=== PATIENT | female | born 1965 | race Caucasian/White ===

== ENCOUNTER 2016-12-11 08:46 | Emergency (ER) | payer OTHER ==
[~2016-12-11] VITALS: Ht 157.5 cm; Wt 85.9 kg
[2016-12-11 08:46] VITALS: BP 134/80
[~2016-12-11 08:46] MED LIST: /CELE20CA OR; /LOR25TA PO; /TIOT18INH INH; ACET500C PO; AMLO2.5T OR; AMLO2.5T PO; ASPI81TA85 PO; ATOR1TAB21 PO; BUSP15TA OR; BUTATAB6 PO; CARI350T OR; CELE40TA OR; CENTTAB PO; CLON0.5T OR; CLON1TAB PO; CRES20TA PO; DICLOFENAC PO; FENO145T PO; FENO54TA2 PO; HCTZ PO; IBUP-1022 PO; IBUP-1114 PO; IMURAN PO; LEFL1TAB4 PO; LISI10TA4 PO; METH5TAB2 OR; MULTIVIT PO; NABU750T OR; NAPR500T3 PO; OXYC-208 PO; OXYC10TA12 OR; OXYC5CAP2 PO; PAXI40TA2 PO; PRED10TA2 OR; ROSU10TA OR; SERT50TA PO; SULF500T8 OR; TRAM50TA2 OR; TUDO400A IN; ZOLO100T PO; [UNRECOGNIZED DRUG - CODE] PO; [UNRECOGNIZED DRUG - OTHER] PO; [UNRECOGNIZED DRUG - OTHER] PO; [UNRECOGNIZED DRUG - OTHER] PO; spiriva; spiriva INH
[2016-12-12] MEDS ORDERED: CARI350T (12:25)
[2016-12-12] MEDS ORDERED: INCR1INH (12:25)
[2016-12-12] MEDS ORDERED: BUTA-198 (12:25)
[2016-12-12] MEDS ORDERED: PRED5TA (12:25)
[2016-12-12] MEDS ORDERED: OXYC15TA76 (12:25)
[2016-12-12] MEDS ORDERED: SUMA50TA2 (12:25)
[2016-12-12] MEDS ORDERED: FENO54TA2 PO (15:27)
[2016-12-12] MEDS ORDERED: CARI350T PO (15:27)
[2016-12-12] MEDS ORDERED: CLON1TAB PO (15:27)
[2016-12-12] MEDS ORDERED: INCR1INH INH (15:27)
[2016-12-12] MEDS ORDERED: ACET50TAOT PO (15:27)
[2016-12-12] MEDS ORDERED: SUMA50TA2 PO (15:27)
[2016-12-12] MEDS ORDERED: ASPI1TAB PO (15:27)
[2016-12-12] MEDS ORDERED: OXYC15TA76 PO (15:27)
[2016-12-12] MEDS ORDERED: AZAT50TA2 PO ×2 (15:27)
== END 2016-12-11 09:48 | disposition left against medical advice (07) ==
LOC: M ED 08:46
DX: R11.10 Vomiting, unspecified (principal); Z53.29 Procedure and treatment not carried out because of patient's decision for other reasons

== ENCOUNTER 2016-12-12 11:52 | Observation (INO) | payer OTHER ==
[~2016-12-12] VITALS: Ht 157.5 cm; Wt 86.6 kg
[2016-12-12] MEDS: NS 1,000 ML IV SCH ×2 (00:50→21:21)
[2016-12-12] MEDS ORDERED: INCR1INH (12:25)
[2016-12-12] MEDS ORDERED: SUMA50TA2 (12:25)
[2016-12-12] MEDS ORDERED: CARI350T (12:25)
[2016-12-12] MEDS ORDERED: BUTA-198 (12:25)
[2016-12-12] MEDS ORDERED: PRED5TA (12:25)
[2016-12-12] MEDS ORDERED: OXYC15TA76 (12:25)
[2016-12-12] MEDS ORDERED: NS 1,000 ML IV ONE (12:45)
[2016-12-12 12:59] LABS: BASO % 0.6 % (0.0-1.0); EOS # 0.1 K/mm3 (0.0-0.50); EOS % 1.3 % (0.0-3.0); LARGE UNSTAINED CELL # 0.1 K/mm3 (0.0-0.4); LARGE UNSTAINED CELL % 1.6 % (0.0-4.0); LYMPH % 16.2 % (24.0-44.0); MEAN CORPUSCULAR HGB CONC 33.9 g/dl (32.0-36.5); MEAN CORPUSCULAR VOLUME 88.4 fl (80.0-96.0); MONO # 0.3 K/mm3 (0.0-0.8); MONO % 5.8 % (0.0-5.0); NEUTROPHILS # 4.3 K/mm3 (1.8-7.7); NEUTROPHILS % 74.5 % (36.0-66.0); PLATELET COUNT, AUTOMATED 217 k/mm3 (150-450); WHITE BLOOD COUNT 5.8 K/mm3 (4.0-10.0)
[2016-12-12] MEDS ORDERED: ONDANSETRON 4MG/2ML VIAL (J2405) IV ONE (13:00)
[2016-12-12] MEDS ORDERED: METOCLOPRAMIDE INJ 10MG/2ML VIAL (J2765) IV ONE (13:00)
[2016-12-12 13:27] LABS: ALBUMIN 3.3 GM/DL (3.2-5.2); ALBUMIN/GLOBULIN RATIO 0.83 (1.00-1.93); ALKALINE PHOSPHATASE 216 U/L (45-117); ALT/SGPT 79 U/L (12-78); ANION GAP 11 MEQ/L (8-16); AST/SGOT 163 U/L (15-37); BILIRUBIN,DIRECT 0.4 MG/DL (0.0-0.2); BILIRUBIN,TOTAL 0.8 MG/DL (0.2-1.0); BLOOD UREA NITROGEN 7 MG/DL (7-18); CALCIUM LEVEL 8.8 MG/DL (8.5-10.1); CARBON DIOXIDE LEVEL 23 MEQ/L (21-32); CHLORIDE LEVEL 98 MEQ/L (98-107); CREATININE FOR GFR 0.63 MG/DL (0.55-1.02); GLOMERULAR FILTRATION RATE > 60.0 (>51); GLUCOSE, FASTING 103 MG/DL (70-105); POTASSIUM SERUM 3.9 MEQ/L (3.5-5.1); SODIUM LEVEL 132 MEQ/L (136-145); TOTAL PROTEIN 7.3 GM/DL (6.4-8.2)
--- NOTE | 2016-12-12 13:42 | REP ---
RIGHT UPPER QUADRANT ULTRASOUND: Real-time sonographic evaluation of the right upper quadrant performed. The gallbladder demonstrates no evidence of intraluminal calculi. The gallbladder wall is approximately 4 mm which is upper limits of normal. There is no pericholecystic fluid. There is no intrahepatic or extrahepatic biliary dilatation, common bile duct measuring 5 mm in diameter. Liver and pancreas demonstrate no evidence of a mass. Right kidney demonstrates no hydronephrosis or nephrolithiasis with normal size at 11.5 cm in length. IMPRESSION: Essentially negative right upper quadrant ultrasound. Signed by Giovani Dorsey MD 12/12/2016 04:50 P
[2016-12-12] MEDS ORDERED: PERCOCET 5MG/325MG TAB PO PRN (14:45)
[2016-12-12] MEDS ORDERED: KETOROLAC 30 MG/ML VIAL (J1885) IV PRN (14:45)
[2016-12-12] MEDS ORDERED: MORPHINE 2 MG/ML 1ML SYRINGE IV PRN (14:45)
[2016-12-12] MEDS ORDERED: SODIUM CHLORIDE 0.9% 1000 ML IV SCH (14:45)
[2016-12-12] MEDS ORDERED: METOCLOPRAMIDE INJ 10MG/2ML VIAL (J2765) IV PRN (15:00)
[2016-12-12] MEDS ORDERED: clonazePAM 1 MG TAB PO ONE (15:00)
[2016-12-12] MEDS ORDERED: ONDANSETRON 4MG/2ML VIAL (J2405) IV PRN (15:00)
[2016-12-12] MEDS ORDERED: PANTOPRAZOLE 40MG INJ (PROTONIX) (C9113) IV ONE (15:00)
[2016-12-12 15:15] LABS: CALCIUM OXALATE CRYSTALS SMALL
[2016-12-12] MEDS ORDERED: ACET50TAOT PO (15:27)
[2016-12-12] MEDS ORDERED: CLON1TAB PO (15:27)
[2016-12-12] MEDS ORDERED: SUMA50TA2 PO (15:27)
[2016-12-12] MEDS ORDERED: FENO54TA2 PO (15:27)
[2016-12-12] MEDS ORDERED: AZAT50TA2 PO ×2 (15:27)
[2016-12-12] MEDS ORDERED: ASPI1TAB PO (15:27)
[2016-12-12] MEDS ORDERED: INCR1INH INH (15:27)
[2016-12-12] MEDS ORDERED: CARI350T PO (15:27)
[2016-12-12] MEDS ORDERED: OXYC15TA76 PO (15:27)
[2016-12-12] MEDS ORDERED: clonazePAM 1 MG TAB PO PRN (15:30)
[2016-12-12] MEDS: CARISOPRODOL 350 MG TAB PO SCH ×2 (16:00→20:56)
[2016-12-12] MEDS: SUCRALFATE 1 GM TAB PO SCH (18:00)
--- NOTE | 2016-12-12 19:30 | REPUSA ---
Clinical history: Pain. Technique: T2 weighted images of the upper abdomen were obtained. MIP images of the biliary ducts wit h 3-D reconstructions were obtained for the cholangiogram portion of the study. No comparison is available. Findings: The biliary ducts demonstrate normal caliber and contour. No stenosis, narrowing, or intral uminal filling defect is seen. The gallbladder is unremarkable. The common bile duct measures 4 mm, a nd the common hepatic duct measures 6 mm. The pancreatic duct is not visualized. The visualized porti ons of the liver, spleen, pancreas, kidneys, and adrenal glands are unremarkable. There is no abdomin al lymphadenopathy or ascites. The osseous structures and soft tissues are unremarkable. Impression: Unremarkable MR cholangiogram study.
[2016-12-12 20:25] VITALS: BP 151/72
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
[2016-12-12] MEDS ORDERED: azaTHIOprine 50 MG TAB (J7500) PO SCH (21:00)
[2016-12-12] MEDS: clonazePAM 0.5 MG TAB PO PRN (21:21)
[2016-12-12] MEDS: HEPARIN SOD (PORCINE) 5000 UNITS/ML VIAL SQ SCH (21:22)
[2016-12-12] MEDS: oxyCODONE 5MG TAB PO PRN (21:27)
[2016-12-12] MEDS: ASPIRIN 81 MG ENTERIC TAB PO SCH ×2 (21:42→21:43)
--- NOTE | 2016-12-12 22:26 | ECGEPIP ---
Stationary ECG Study [facility] Test Date: 2016-12-12 Pat Name: JENNY FALCON Department: Room: [place] [address] Gender: F Dry Roaster: perfecto : 1965 Requested By: JESÚS Gonzales Order Number: [id number] Reading MD: Gino Baptiste Measurements Intervals [place] Rate: 89 P: 67 ND: 149 QRS: 34 QRSD: 86 T: 56 QT: 389 QTc: 475 Interpretive Statements Normal sinus rhythm Nonspecific ST-T wave abnormalities No significant change when compared to prior tracing of 10/13/2013 Electronically Signed On 12-12-2016 22:26:20 EDT by Gino Baptiste
[2016-12-12] MEDS ORDERED: D5W/0.45% SODIUM CHLORIDE 1,000 ML IV SCH (22:43)
[2016-12-13] VITALS: BP 122/63
[2016-12-13] MEDS: SUCRALFATE 1 GM TAB PO SCH ×4 (00:44→18:43)
[2016-12-13 04:00] VITALS: BP 124/67
[2016-12-13] MEDS: HEPARIN SOD (PORCINE) 5000 UNITS/ML VIAL SQ SCH ×3 (06:32→21:18)
[2016-12-13 07:22] LABS: BASO % 0.5 % (0.0-1.0); EOS % 1.1 % (0.0-3.0); LARGE UNSTAINED CELL # 0.2 K/mm3 (0.0-0.4); LARGE UNSTAINED CELL % 4.8 % (0.0-4.0); LYMPH # 0.5 K/mm3 (1.5-4.5); LYMPH % 14.2 % (24.0-44.0); MEAN CORPUSCULAR HEMOGLOBIN 30.8 pg (27.0-33.0); MEAN CORPUSCULAR HGB CONC 34.8 g/dl (32.0-36.5); MEAN CORPUSCULAR VOLUME 88.5 fl (80.0-96.0); MONO # 0.2 K/mm3 (0.0-0.8); MONO % 4.8 % (0.0-5.0); NEUTROPHILS # 2.8 K/mm3 (1.8-7.7); NEUTROPHILS % 74.7 % (36.0-66.0); PLATELET COUNT, AUTOMATED 171 k/mm3 (150-450); RED CELL DISTRIBUTION WIDTH 15.8 % (11.5-14.5); WHITE BLOOD COUNT 3.7 K/mm3 (4.0-10.0)
[2016-12-13 07:41] LABS: ALBUMIN 2.6 GM/DL (3.2-5.2); ALBUMIN/GLOBULIN RATIO 0.81 (1.00-1.93); ALKALINE PHOSPHATASE 178 U/L (45-117); ALT/SGPT 61 U/L (12-78); ANION GAP 9 MEQ/L (8-16); AST/SGOT 130 U/L (15-37); BILIRUBIN,TOTAL 0.5 MG/DL (0.2-1.0); BLOOD UREA NITROGEN 5 MG/DL (7-18); CALCIUM LEVEL 7.7 MG/DL (8.5-10.1); CARBON DIOXIDE LEVEL 23 MEQ/L (21-32); CHLORIDE LEVEL 105 MEQ/L (98-107); CHOLESTEROL LEVEL 170 MG/DL (<200); CREATININE FOR GFR 0.52 MG/DL (0.55-1.02); GAMMA GLUTAMYLTRANSPEPTIDASE 723 U/L (5-55); GLOMERULAR FILTRATION RATE > 60.0 (>51); GLUCOSE, FASTING 76 MG/DL (70-105); MAGNESIUM LEVEL 2.2 MG/DL (1.8-2.4); POTASSIUM SERUM 4.1 MEQ/L (3.5-5.1); SODIUM LEVEL 137 MEQ/L (136-145); TOTAL PROTEIN 5.8 GM/DL (6.4-8.2); TRIGLYCERIDES LEVEL 217 MG/DL (<150)
[2016-12-13 08:00] VITALS: BP 122/61
[2016-12-13] MEDS: clonazePAM 0.5 MG TAB PO PRN ×2 (08:37→20:50)
[2016-12-13] MEDS: CARISOPRODOL 350 MG TAB PO SCH ×3 (08:37→20:50)
[2016-12-13] MEDS: PANTOPRAZOLE 40MG INJ (PROTONIX) (C9113) IV SCH (08:37)
[2016-12-13] MEDS: ASPIRIN 81 MG ENTERIC TAB PO SCH (08:49)
[2016-12-13] MEDS ORDERED: azaTHIOprine 50 MG TAB (J7500) PO SCH (09:00)
[2016-12-13] MEDS ORDERED: E-Z-PAQUE 96% w/w SUSP 176GM BTL As Ordered ONE (13:56)
[2016-12-13] MEDS ORDERED: E-Z-HD 98% w/w 340GM SUSP BTL As Ordered ONE (13:57)
[2016-12-13] MEDS ORDERED: E-Z-GAS II EFFERVESCENT PACKET (SODIUM BICARB./CITRIC ACID/SIMETHICONE) As Ordered ONE (13:57)
--- NOTE | 2016-12-13 14:49 | REP ---
Hepatobiliary scan: History: Abdominal pain. Question acute cholecystitis. Technique: 6.6 mCi technetium 99m mebrofenin is injected and sequential anterior abdominal images are acquired for 60 minutes. A 3 hour delayed sequence is acquired as well. Scintigraphic findings: The initial hepatocellular parenchymal uptake phase is normal and homogeneous. Intrahepatic and extrahepatic biliary tract and duodenal labeling is first visible on the 10 minute image. Subsequent images demonstrate normal washout from the liver into the small intestine. The gallbladder is not visualized during the first 60 minutes of imaging. However, the gallbladder is well seen on the 3 hour delayed images. This excludes acute cholecystitis. Impression: The gallbladder is labeled between the 1 hour and the 3 hour images consistent with chronic cholecystitis. There is no evidence of cystic duct obstruction or acute cholecystitis. Signed by Conrado Ambrose MD 12/13/2016 05:24 P
[2016-12-13 16:00] VITALS: BP 112/57
--- NOTE | 2016-12-13 16:03 | IPNPDOC ---
Subjective Date Seen The patient was seen on 12/13/16. Subjective Chief Complaint/HPI Patient seen and examined at the bedside. States that her abdominal pain has improved somewhat overnight. Denies any other acute complaints at this time. Objective Physical Examination General Exam: Positive: Alert, Cooperative, No Acute Distress ENT Exam: Positive: Atraumatic, Mucous membr. moist/pink Neck Exam: Negative: JVD Chest Exam: Positive: Clear to auscultation, Normal air movement Heart Exam: Positive: Rate Normal, Normal S1, Normal S2 Abdomen Exam: Positive: Soft, Tenderness (Mild tenderness to deep palpation in the epigastric region) Extremity Exam: Negative: Tenderness, Swelling Psych Exam: Positive: Oriented x 3 Assessment /Plan Plan/VTE VTE Prophylaxis Ordered?: Yes Plan Abdominal Pain possibly 2/2 Chronic Cholecystitis, Pancreatitis, possible Peptic Ulcer Disease U/S of the GB, and MRCP negative HIDA scan however notable for chronic cholecystitis Upper GI Series ordered for possible underlying PUD--Patient started on Protonix , Carafate Cont IVF Hydration NPO Will consult Surgery regarding possible need for cholecystectomy in light of her symptoms of RUQ and associated N/V Dyslipidemia Cont Statin History of chronic lumbar disc disease Continue Soma History of rheumatoid arthritis Will hold Azathioprine for now History of migraine headaches Continue current regimen Anxiety Continue Klonopin when necessary DVT prophylaxis Heparin subcutaneous VS, I&O, 24H, Fishbone Vital Signs/I&O Vital Signs Date Time Temp Pulse Resp B/P (MAP) Pulse Ox O2 Delivery O2 Flow Rate FiO2 12/13/16 14:52 18 12/13/16 08:00 98.1 89 122/61 (81) 99 Room Air I&O- Last 24 Hours up to 6 AM 12/14/16 06:00 Intake Total 0 ml Output Total 550 ml Balance -550 ml Laboratory Data 24H LABS Laboratory Tests 2 12/12/16 19:03: Total Creatine Kinase 115, Creatine Kinase MB 1.5, Creatine Kinase MB Relative Index 1.30, Troponin I < 0.02 12/12/16 23:52: Total Creatine Kinase 114, Creatine Kinase MB 1.6, Creatine Kinase MB Relative Index 1.40, Troponin I < 0.02 12/13/16 06:53: White Blood Count 3.7L, Red Blood Count 3.84L, Hemoglobin 11.8#L, Hematocrit 34.0L, Mean Corpuscular Volume 88.5, Mean Corpuscular Hemoglobin 30.8, Mean Corpuscular Hemoglobin Concent 34.8, Red Cell Distribution Width 15.8H, Platelet Count 171, Neutrophils (%) (Auto) 74.7H, Lymphocytes (%) (Auto) 14.2L, Monocytes (%) (Auto) 4.8, Eosinophils (%) (Auto) 1.1, Basophils (%) (Auto) 0.5, Neutrophils # (Auto) 2.8, Lymphocytes # (Auto) 0.5L, Monocytes # (Auto) 0.2, Eosinophils # (Auto) 0.0, Basophils # (Auto) 0.0, Large Unclassified Cells % 4.8H, Large Unclassified Cells # 0.2, Anion Gap 9, Glomerular Filtration Rate > 60.0, Blood Urea Nitrogen 5L, Creatinine 0.52L, Sodium Level 137, Potassium Level 4.1, Chloride Level 105, Carbon Dioxide Level 23, Calcium Level 7.7L, Aspartate Amino Transf (AST/SGOT) 130H, Alanine Aminotransferase (ALT/SGPT) 61, Gamma Glutamyl Transpeptidase 723H, Alkaline Phosphatase 178H, Total Bilirubin 0.5, Triglycerides Level 217H, LDL Cholesterol 93.6, Total Protein 5.8#L, Albumin 2.6#L, Magnesium Level 2.2, Albumin/Globulin Ratio 0.81L, Total Cholesterol 170, Non-HDL Cholesterol (LDL + VLDL) 137, Total HDL Cholesterol 33L , Cholesterol/HDL Ratio 5.151H, Lipase 868H CBC/BMP Laboratory Tests 12/13/16 06:53 Red Blood Count 3.84 L, Mean Corpuscular Volume 88.5, Mean Corpuscular Hemoglobin 30.8, Mean Corpuscular Hemoglobin Concent 34.8, Red Cell Distribution Width 15.8 H, Neutrophils (%) (Auto) 74.7 H, Lymphocytes (%) (Auto ) 14.2 L, Monocytes (%) (Auto) 4.8, Eosinophils (%) (Auto) 1.1, Basophils (%) ( Auto) 0.5, Neutrophils # (Auto) 2.8, Lymphocytes # (Auto) 0.5 L, Monocytes # ( Auto) 0.2, Eosinophils # (Auto) 0.0, Basophils # (Auto) 0.0, Calcium Level 7.7 L , Aspartate Amino Transf (AST/SGOT) 130 H, Alanine Aminotransferase (ALT/SGPT) 61, Gamma Glutamyl Transpeptidase 723 H, Alkaline Phosphatase 178 H, Total Bilirubin 0.5, Triglycerides Level 217 H, LDL Cholesterol 93.6, Total Protein 5.8 #L, Albumin 2.6 #L Microbiology Microbiology 12/12/16 Urine Culture - Final, Complete CHASE SMITH MD Dec 13, 2016 16:03
--- NOTE | 2016-12-13 17:20 | REP ---
UPPER GI, AIR CONTRAST: The procedure was performed under the direct supervision of Dr. Dorsey. The images were reviewed with Dr. Dorsey. The network support analyst film shows no organomegaly or pathological masses. The intestinal gas pattern is nonspecific. There are vascular stents identified. There are vascular calcifications identified. Liquid barium and gas-producing granules were given in the erect position as well as liquid barium in the prone oblique position in order to perform a double contrast upper GI examination. The oral and pharyngeal stages of deglutition are unremarkable. Esophageal transport is prompt and efficient and there is no esophagitis or stricture. There is a hiatal hernia present. There is a Schatzki's B ring which measures 8 mm at it widest. Gastroesophageal reflux is not demonstrated on this examination. The stomach clark are normally outlined. The rugal folds are smooth and regular. There is no gastritis, neoplasm or ulcer disease. The duodenal clark are normally outlined. The mucosal folds are smooth and regular. There is no duodenitis, pancreatitis, peptic ulcer disease or neoplasm. The visualized portion of the proximal small bowel appears normal in course and caliber. IMPRESSION: There is a hiatal hernia. There is a Schatzki's B ring which measures 8 mm. 2 minutes and 21 seconds of fluoroscopy time was utilized for this procedure. Reviewed by JONATHON Hawthorne 12/15/2016 04:01 PEdited and Signed by Giovani Dorsey MD 12/15/2016 07:20 P
[2016-12-13] MEDS: INCRUSE ELLIPTA 62.5 MCG INH SCH (18:12)
[2016-12-13 20:00] VITALS: BP 139/73
[2016-12-13] MEDS: oxyCODONE 5MG TAB PO PRN (21:19)
[2016-12-14] VITALS: BP 145/70
[2016-12-14] MEDS: SUCRALFATE 1 GM TAB PO SCH ×3 (00:42→12:00)
[2016-12-14] MEDS: HEPARIN SOD (PORCINE) 5000 UNITS/ML VIAL SQ SCH (06:22)
[2016-12-14 07:23] LABS: BASO % 0.5 % (0.0-1.0); EOS # 0.1 K/mm3 (0.0-0.50); EOS % 2.1 % (0.0-3.0); LARGE UNSTAINED CELL # 0.2 K/mm3 (0.0-0.4); LARGE UNSTAINED CELL % 5.5 % (0.0-4.0); LYMPH # 0.6 K/mm3 (1.5-4.5); LYMPH % 18.8 % (24.0-44.0); MEAN CORPUSCULAR HEMOGLOBIN 31.3 pg (27.0-33.0); MEAN CORPUSCULAR HGB CONC 36.1 g/dl (32.0-36.5); MEAN CORPUSCULAR VOLUME 86.7 fl (80.0-96.0); MONO # 0.2 K/mm3 (0.0-0.8); MONO % 5.6 % (0.0-5.0); NEUTROPHILS # 2.3 K/mm3 (1.8-7.7); NEUTROPHILS % 67.5 % (36.0-66.0); PLATELET COUNT, AUTOMATED 159 k/mm3 (150-450); RED CELL DISTRIBUTION WIDTH 15.8 % (11.5-14.5); WHITE BLOOD COUNT 3.3 K/mm3 (4.0-10.0)
[2016-12-14 07:25] LABS: ALBUMIN 2.6 GM/DL (3.2-5.2); ALBUMIN/GLOBULIN RATIO 0.68 (1.00-1.93); ALKALINE PHOSPHATASE 178 U/L (45-117); ALT/SGPT 60 U/L (12-78); ANION GAP 10 MEQ/L (8-16); AST/SGOT 137 U/L (15-37); BILIRUBIN,TOTAL 0.5 MG/DL (0.2-1.0); BLOOD UREA NITROGEN 3 MG/DL (7-18); CALCIUM LEVEL 8.4 MG/DL (8.5-10.1); CARBON DIOXIDE LEVEL 26 MEQ/L (21-32); CHLORIDE LEVEL 105 MEQ/L (98-107); GLOMERULAR FILTRATION RATE > 60.0 (>51); GLUCOSE, FASTING 82 MG/DL (70-105); POTASSIUM SERUM 3.9 MEQ/L (3.5-5.1); SODIUM LEVEL 141 MEQ/L (136-145); TOTAL PROTEIN 6.4 GM/DL (6.4-8.2)
[2016-12-14 08:30] VITALS: BP 135/67
[2016-12-14] MEDS ORDERED: PROT1TAB2 PO (08:59)
[2016-12-14] MEDS: ASPIRIN 81 MG ENTERIC TAB PO SCH (09:15)
[2016-12-14] MEDS: CARISOPRODOL 350 MG TAB PO SCH (09:15)
[2016-12-14] MEDS: PANTOPRAZOLE 40MG INJ (PROTONIX) (C9113) IV SCH (09:15)
[2016-12-14] MEDS: INCRUSE ELLIPTA 62.5 MCG INH SCH (11:31)
[2016-12-14] MEDS: clonazePAM 0.5 MG TAB PO PRN (11:34)
[2016-12-14] MEDS: oxyCODONE 5MG TAB PO PRN (11:34)
--- NOTE | 2016-12-14 12:14 | DS.PDOC ---
Discharge Summary General Date of Admission Dec 12, 2016 at 14:43 Date of Discharge 12/14/16 Discharge Summary PROCEDURES PERFORMED DURING STAY: None. ADMITTING/DISCHARGE DIAGNOSES: 1. . Acute Pancreatitis 2. . Chronic cholecystitis 3. . Chronic Dysphagia secondary to Schatzki's ring COMPLICATIONS/CHIEF COMPLAINT: Acute Pancreatitis. HISTORY OF PRESENT ILLNESS: . 51-year-old female with past medical history of GERD, rheumatoid arthritis, migraines, peripheral artery disease, dyslipidemia, asthma, hypertension, history of alcohol abuse for 20+ years but currently sober for the last 12, and chronic lumbar pain presented to the ER with a chief complaint of crampy abdominal pain in the right upper quadrant and epigastric area. The patient also complained of intractable nausea and vomiting with this. She described the abdominal pain is achy and crampy, and exacerbated by eating. She denied any similar episodes in the past. She stated that she has not had any alcoholic drinks in the last 12 years. She denies any complaints of fevers, chills, chest pain, shortness of breath, or any lightheadedness/dizziness. In the ER, the patient was noted to have elevated lipase level. An ultrasound of the gallbladder and MRCP revealed no acute findings. A HIDA scan revealed chronic cholecystitis. The patient was admitted to the hospitalist service for further evaluation and management. During hospitalization, the patient was started on IV fluid hydration, kept nothing by mouth, and administered medications for pain. The patient subsequently reported alleviation of her abdominal pain, nausea, and vomiting. She was started on a clear liquid diet which was advanced as tolerated. I did discuss the case with Dr. Steven of surgery, and there was no acute indication for cholecystectomy at this time. The pancreatitis was deemed likely secondary to the patient's history of alcohol abuse. Also of note, the patient did complain of food getting stuck in her throat at times, which has been happening for the last 30+ years according to the patient. We did order an upper GI series which was remarkable for a Schatzki's ring. At this time, the patient states that she would like to follow-up with GI as an outpatient for further evaluation and possible EGD. I've advised the patient to adhere to a soft diet in the meantime. At this time, the patient states that she is feeling much better and she is eager to return home. I've advised patient to follow-up with her primary care physician within 7 days, and obtain a referral to gastroenterology for further evaluation of the Schatzki's ring. The Patient has been advised to return to the ER if her symptoms were to return, persist, or worsen. DISCHARGE MEDICATIONS: Please see below. ALLERGIES: Please see below. PHYSICAL EXAMINATION ON DISCHARGE: VITAL SIGNS: Please see below. General Exam: Positive: Alert, Cooperative, No Acute Distress ENT Exam: Positive: Atraumatic, Mucous membr. moist/pink Neck Exam: Negative: JVD Chest Exam: Positive: Clear to auscultation, Normal air movement Heart Exam: Positive: Rate Normal, Normal S1, Normal S2 Abdomen Exam: Positive: Soft, Negative for Tenderness Extremity Exam: Negative: Tenderness, Swelling Psych Exam: Positive: Oriented x 3 LABORATORY DATA: Please see below. IMAGING: Clinical history: Pain. Technique: T2 weighted images of the upper abdomen were obtained. MIP images of the biliary ducts with 3-D reconstructions were obtained for the cholangiogram portion of the study. No comparison is available. Findings: The biliary ducts demonstrate normal caliber and contour. No stenosis , narrowing, or intraluminal filling defect is seen. The gallbladder is unremarkable. The common bile duct measures 4 mm, and the common hepatic duct measures 6 mm. The pancreatic duct is not visualized. The visualized portions of the liver, spleen, pancreas, kidneys, and adrenal glands are unremarkable. There is no abdominal lymphadenopathy or ascites. The osseous structures and soft tissues are unremarkable. Impression: Unremarkable MR cholangiogram study. RIGHT UPPER QUADRANT ULTRASOUND: Real-time sonographic evaluation of the right upper quadrant performed. The gallbladder demonstrates no evidence of intraluminal calculi. The gallbladder wall is approximately 4 mm which is upper limits of normal. There is no pericholecystic fluid. There is no intrahepatic or extrahepatic biliary dilatation, common bile duct measuring 5 mm in diameter. Liver and pancreas demonstrate no evidence of a mass. Right kidney demonstrates no hydronephrosis or nephrolithiasis with normal size at 11.5 cm in length. IMPRESSION: Essentially negative right upper quadrant ultrasound. PROGNOSIS: Fair ACTIVITY: As tolerated. DIET: . Low-fat, low-cholesterol diet, soft diet DISCHARGE PLAN: DISPOSITION: . Home DISCHARGE INSTRUCTIONS: 1. . Follow-up with primary care physician within 7 days 2. . Obtain outpatient referral for gastroenterology 3. . Return to the ER for any acute emergencies DISCHARGE CONDITION: Stable. TIME SPENT ON DISCHARGE: Greater than 30 minutes. Vital Signs/I&Os Vital Signs Date Time Temp Pulse Resp B/P (MAP) Pulse Ox O2 Delivery O2 Flow Rate FiO2 12/14/16 11:34 18 12/14/16 08:30 99.0 89 135/67 (89) 97 Room Air I&O- Last 24 Hours up to 6 AM 12/15/16 06:00 Intake Total 315 ml Balance 315 ml Laboratory Data Labs 24H Laboratory Tests 2 12/14/16 06:36: White Blood Count 3.3L, Red Blood Count 3.87L, Hemoglobin 12.1, Hematocrit 33.6L , Mean Corpuscular Volume 86.7, Mean Corpuscular Hemoglobin 31.3, Mean Corpuscular Hemoglobin Concent 36.1, Red Cell Distribution Width 15.8H, Platelet Count 159, Neutrophils (%) (Auto) 67.5H, Lymphocytes (%) (Auto) 18.8L, Monocytes (%) (Auto) 5.6H, Eosinophils (%) (Auto) 2.1, Basophils (%) (Auto) 0.5 , Neutrophils # (Auto) 2.3, Lymphocytes # (Auto) 0.6L, Monocytes # (Auto) 0.2, Eosinophils # (Auto) 0.1, Basophils # (Auto) 0.0, Large Unclassified Cells % 5.5H, Large Unclassified Cells # 0.2, Anion Gap 10, Glomerular Filtration Rate > 60.0, Blood Urea Nitrogen 3L, Creatinine 0.50L, Sodium Level 141, Potassium Level 3.9, Chloride Level 105, Carbon Dioxide Level 26, Calcium Level 8.4L, Aspartate Amino Transf (AST/SGOT) 137H, Alanine Aminotransferase (ALT/SGPT) 60, Alkaline Phosphatase 178H, Total Bilirubin 0.5, Total Protein 6.4, Albumin 2.6L , Albumin/Globulin Ratio 0.68L, Lipase 636H CBC/BMP Laboratory Tests 12/14/16 06:36 Red Blood Count 3.87 L, Mean Corpuscular Volume 86.7, Mean Corpuscular Hemoglobin 31.3, Mean Corpuscular Hemoglobin Concent 36.1, Red Cell Distribution Width 15.8 H, Neutrophils (%) (Auto) 67.5 H, Lymphocytes (%) (Auto ) 18.8 L, Monocytes (%) (Auto) 5.6 H, Eosinophils (%) (Auto) 2.1, Basophils (%) (Auto) 0.5, Neutrophils # (Auto) 2.3, Lymphocytes # (Auto) 0.6 L, Monocytes # ( Auto) 0.2, Eosinophils # (Auto) 0.1, Basophils # (Auto) 0.0, Calcium Level 8.4 L , Aspartate Amino Transf (AST/SGOT) 137 H, Alanine Aminotransferase (ALT/SGPT) 60, Alkaline Phosphatase 178 H, Total Bilirubin 0.5, Total Protein 6.4, Albumin 2.6 L Microbiology Microbiology 12/12/16 Urine Culture - Final, Complete Discharge Medications Scheduled (Incruse Ellipta) 62.5 Mcg/Inh Inh, 1 PUFF INH DAILY, (Reported) Aspirin (Aspirin 81) 81 Mg Tab, 81 MG PO DAILY, (Reported) Azathioprine (Azathioprine) 50 Mg Tab, 50 MG PO QAM, (Reported) Azathioprine (Azathioprine) 50 Mg Tab, 100 MG PO QHS, (Reported) Carisoprodol (Carisoprodol) 350 Mg Tab, 350 MG PO TID, (Reported) Fenofibrate (Fenofibrate) 54 Mg Tab, 54 MG PO DAILY, (Reported) Pantoprazole Sodium Sesquihydr (Protonix) 40 Mg Tab, 40 MG PO DAILY Scheduled PRN Acetaminophen (Acetaminophen) 500 Mg Tab, 500 MG PO for HEADACHE, (Reported) Clonazepam (Clonazepam) 1 Mg Tab, 1 MG PO TID PRN for ANXIETY, (Reported) Oxycodone Hcl (Oxycodone HCl) 15 Mg Tab, 15 MG PO QID PRN for PAIN, (Reported) Sumatriptan Succinate (Sumatriptan Succinate) 50 Mg Tab, 50 MG PO for MIGRAINE, (Reported) Allergies Coded Allergies: Latex (Verified Allergy, Intermediate, SKIN BREAKS OUT, 10/02/13) Etodolac (Verified Adverse Reaction, Intermediate, INSOMNIA, 06/25/12) Ketorolac Tromethamine (Unverified Adverse Reaction, Unknown, DROWSINESS, 12/12/16) CHASE SMITH MD Dec 14, 2016 12:14
== END 2016-12-14 12:20 | disposition home or self-care (01) ==
LOC: M ED 11:52 → M ED INP 14:43 → M PED 20:25
PROVIDERS: ADMIT General Practice; ATTEND Internal Medicine
DX: K85.90 Acute pancreatitis without necrosis or infection, unspecified (principal); K81.1 Chronic cholecystitis; K22.2 Esophageal obstruction; R13.10 Dysphagia, unspecified; K21.9 Gastro-esophageal reflux disease without esophagitis; E78.5 Hyperlipidemia, unspecified; I10 Essential (primary) hypertension; J45.909 Unspecified asthma, uncomplicated; M54.5 Low back pain; Z79.82 Long term (current) use of aspirin; Z79.52 Long term (current) use of systemic steroids; Z88.8 Allergy status to other drugs, medicaments and biological substances; Z79.899 Other long term (current) drug therapy; M06.9 Rheumatoid arthritis, unspecified; I73.9 Peripheral vascular disease, unspecified
CPT/HCPCS: 36415; 74181; 74241; 76705; 80048; 80053; 80061; 80076; 81001; 82550; 82553; 82977; 83690; 83735; 85025; 87086; 93000; 96372; 96374; 96375; 96376; 99284; C9113; J2405; J2765; J7500

== ENCOUNTER 2016-12-28 11:04 | Inpatient (IN) | payer OTHER ==
[~2016-12-28] VITALS: Ht 157.5 cm; Wt 90.0 kg
[~2016-12-28 11:04] MED LIST changes: +ACET50TAOT PO; +ASPI1TAB PO; +AZAT50TA2 PO; +BUTA-198; +CARI350T; +CARI350T PO; +INCR1INH; +INCR1INH INH; +OXYC15TA76; +OXYC15TA76 PO; +PRED5TA; +PROT1TAB2 PO; +SUMA50TA2; +SUMA50TA2 PO
[2016-12-28] MEDS ORDERED: MORPHINE 4 MG/ML 1ML SYRINGE IV ONE (14:30)
[2016-12-28] MEDS ORDERED: NS 1,000 ML IV ONE ×3 (14:30→17:15)
[2016-12-28] MEDS ORDERED: ONDANSETRON 4MG/2ML VIAL (J2405) IV ONE (14:30)
[2016-12-28 15:53] LABS: BASO % 0.6 % (0.0-1.0); EOS % 0.8 % (0.0-3.0); IMMATURE GRANULOCYTE % 0.6 % (0-0); LYMPH # 1.3 10^3/uL (1.5-4.5); LYMPH % 25.7 % (24.0-44.0); MEAN CORPUSCULAR HGB CONC 33.8 g/dl (32.0-36.5); MEAN CORPUSCULAR VOLUME 88.6 fl (80.0-96.0); MONO # 0.5 10^3/uL (0.0-0.8); MONO % 9.8 % (0.0-5.0); NEUTROPHILS # 3.3 10^3/uL (1.8-7.7); NEUTROPHILS % 62.5 % (36.0-66.0); PLATELET COUNT, AUTOMATED 192 10^3/uL (150-450); RED CELL DISTRIBUTION WIDTH 18.7 % (11.5-14.5); WHITE BLOOD COUNT 5.2 10^3/uL (4.0-10.0)
[2016-12-28 15:58] LABS: MICROSCOPIC INDICATED? MAN NO (NO)
[2016-12-28 16:15] LABS: ALBUMIN 2.8 GM/DL (3.2-5.2); ALBUMIN/GLOBULIN RATIO 0.65 (1.00-1.93); ALKALINE PHOSPHATASE 339 U/L (45-117); ALT/SGPT 64 U/L (12-78); AMYLASE 156 U/L (25-115); ANION GAP 15 MEQ/L (8-16); AST/SGOT 172 U/L (15-37); BILIRUBIN,DIRECT 0.8 MG/DL (0.0-0.2); BILIRUBIN,TOTAL 1.2 MG/DL (0.2-1.0); BLOOD UREA NITROGEN 10 MG/DL (7-18); CALCIUM LEVEL 9.1 MG/DL (8.5-10.1); CARBON DIOXIDE LEVEL 20 MEQ/L (21-32); CHLORIDE LEVEL 97 MEQ/L (98-107); CREATININE FOR GFR 0.62 MG/DL (0.55-1.02); GLOMERULAR FILTRATION RATE > 60.0 (>51); GLUCOSE, FASTING 105 MG/DL (70-105); POTASSIUM SERUM 4.1 MEQ/L (3.5-5.1); SODIUM LEVEL 132 MEQ/L (136-145); TOTAL PROTEIN 7.1 GM/DL (6.4-8.2)
[2016-12-28] MEDS ORDERED: LANS30CA PO (17:49)
[2016-12-28] MEDS ORDERED: ONDANSETRON 4MG/2ML VIAL (J2405) IV PRN (19:15)
[2016-12-28] MEDS ORDERED: MORPHINE 2 MG/ML 1ML SYRINGE IV PRN (19:15)
[2016-12-28] MEDS: PERCOCET 5MG/325MG TAB PO PRN (19:58)
--- NOTE | 2016-12-28 20:17 | HPE ---
DATE OF ADMISSION: 12/28/2016 PRIMARY CARE PROVIDER: MEGHANN Kim CHIEF COMPLAINT: Abdominal pain. HISTORY OF THE PRESENT ILLNESS: The patient was recently discharged on 12/14/2016. At that time, she had been admitted for several days and was found to have pancreatitis. It was unclear what the etiology of her pancreatitis was. She has a history of alcohol abuse but no alcoholic intake for greater than 12 years. She has not been sick recently. No new changes in her medications. She did improve while in the hospital. However, shortly after being discharged, she did progressively worsen once again to the point that she could no longer bear it and she was unable to hold any food done, which prompted her to re-present to the emergency room once again today. She had made an appointment to see a numerical control nesting operator in [place], but will be unable to get in to see him for another 2 weeks. Since her last discharge, she has stopped taking azathioprine, sumatriptan and fenofibrate to avoid any possible effect they may have been having on her abdominal pain. However, her pain continued to progress. She presented to the emergency room with nausea and vomiting, was found to be tachycardic and have an elevated lipase. At the present time, the patient tells me that she continues to feel ill. She has abdominal pain, nausea and vomiting. Her pain is exactly the same as it was during her last presentation, she states. PAST MEDICAL HISTORY: Pancreatitis. Chronic cholecystitis. Dysphagia secondary to Schatzki's ring. Gastroesophageal reflux disease. Rheumatoid arthritis. Migraines. Peripheral arterial disease, status post stents. Dyslipidemia. Asthma. Hypertension. Chronic low back pain. Fibromyalgia. Anxiety. ALLERGIES: TORADOL. PAST SURGICAL HISTORY: Right shoulder surgery. Bilateral lower extremity stent placement. HOME MEDICATIONS: - oxycodone 15 mg four times a day as needed for pain - sumatriptan 50 mg twice a day as needed for migraine - fenofibrate 54 mg every evening - Incruse Ellipta 62.5 mcg inhaled daily - lansoprazole 30 mg every evening - aspirin 81 mg daily - carisoprodol 350 mg three times a day as needed muscle spasms - clonazepam 1 mg three times a day as needed for anxiety SOCIAL HISTORY: She has not drank for 12 years. She continues to smoke. She lives with her who accompanies her in the emergency room. PHYSICAL EXAMINATION: Temperature 98.8, heart rate 117, respiratory rate 18, blood pressure 132/70, oxygen saturation 97% on room air. General: She is an obese female, appears older than stated age. She is lying on her left side. She does not appear to be in any acute distress. She just appears to be fatigued. HEENT: Cranial nerves II-XII are grossly intact. She has dry mucous membranes. No elevated of jugular venous pressure (JVP). Cardiovascular Exam: S1, S2. She is mildly tachycardic. No additional heart sounds are appreciated. Respiratory Exam: Clear. Abdominal Exam: Bowel sounds are diminished. She has diffuse tenderness to palpation. Extremities: No clubbing, cyanosis or edema. LABORATORY DATA: WBC 5.2, hemoglobin 13.2, platelet count 192. Chemistry panel: Sodium 132, potassium 4.1, chloride 97, bicarbonate 20, BUN 10 , creatinine 0.6, lactic acid 2.8, total bilirubin 1.2, AST 172, alkaline phosphatase 339, lipase 1098, amylase 156. No new imaging. She did have an abdominal MRI during her last stay that was an unremarkable MR cholangiogram study. ASSESSMENT AND PLAN: This is a 51-year-old female with recurrent pancreatitis. Problems: 1. Recurrent pancreatitis. Will make the patient nothing by mouth, place her on by mouth and intravenous pain medication, admit her to the medical-surgical floor. I will bolus her two liters of intravenous fluids, recheck a lactic acid. Will recheck her comprehensive metabolic panel in the morning to reassess her liver function test functioning. I will check a urine toxicology and a serum ethanol level as she does have an elevated AST, although it does appear to be elevated during her last stay as well. Her medications do not appear suspect. It may be related to her ongoing tobacco use. Will discuss the case further with Dr. Hansen of gastroenterology to see the patient in consultation for recurrent pancreatitis. The etiology appears to be persistent. She may benefit from repeat imaging of her pancreas to evaluate for any ductal abnormalities. I will check a lipid panel in the morning, CT scan of the abdomen at this time. 2. Chronic back spasms. Continue with Soma. 3. Anxiety. Continue with clonazepam. 4. Gastroesophageal reflux disease. She will be on a proton pump inhibitor (PPI) intravenously. 5. Dyslipidemia. We are holding her fenofibrate. 6. Environmental allergies. We are holding her Zyrtec. 7. Deep vein thrombosis (DVT) prophylaxis. She is on Lovenox. 8. Migraines. We are holding her sumatriptan. DISPOSITION: The patient is admitted to Dr. Fong's service who will continue following the patient at 7:00 a.m. [facility]
--- NOTE | 2016-12-28 20:20 | REPUSA ---
CT of the abdomen and pelvis without contrast Clinical statement: recurrent pancreatitis. Technique: Multiple axial CT images were obtained from the base of the lungs to the floor of the pelv is utilizing 5 mm axial slices without administration of contrast. Coronal and sagittal reconstructio ns were also obtained. No comparison is available. Findings: Chest: The visualized lung bases are clear. Abdomen: The kidneys are normal in size bilaterally. There is no evidence of hydronephrosis or nephro lithiasis. The liver is enlarged, measuring 29 cm in diameter. No focal hepatic masses are appreciate d. The spleen, pancreas, gallbladder and adrenal glands are unremarkable. The aorta demonstrates norm al caliber and contour. There is no abdominal lymphadenopathy or ascites. Pelvis: The bowel is unremarkable, with no obstructive or inflammatory changes. The appendix is ismael l. The urinary bladder is within normal limits. There is no pelvic lymphadenopathy or ascites. The ot her pelvic structures appear unremarkable. Bones: There are no suspicious osseous abnormalities seen. Impression: Unremarkable CT examination of the abdomen and pelvis.
[2016-12-28 20:29] LABS: METHADONE URINE NEGATIVE (NEGATIVE)
[2016-12-28 22:45] VITALS: BP 131/61
[2016-12-28] MEDS: NS 1,000 ML IV SCH (22:54)
[2016-12-28] MEDS: PANTOPRAZOLE 40MG INJ (PROTONIX) (C9113) IV SCH (23:09)
[2016-12-28] MEDS: CARISOPRODOL 350 MG TAB PO PRN (23:09)
[2016-12-28] MEDS: SENOKOT S TAB PO SCH (23:09)
[2016-12-28] MEDS: clonazePAM 0.5 MG TAB PO PRN (23:10)
[2016-12-29 06:00] VITALS: BP 115/59
[2016-12-29] MEDS: PERCOCET 5MG/325MG TAB PO PRN ×3 (06:15→17:27)
[2016-12-29] MEDS: NS 1,000 ML IV SCH ×2 (06:16→08:27)
[2016-12-29 07:21] LABS: MEAN CORPUSCULAR HGB CONC 32.7 g/dl (32.0-36.5); MEAN CORPUSCULAR VOLUME 91.6 fl (80.0-96.0); PLATELET COUNT, AUTOMATED 138 10^3/uL (150-450); RED CELL DISTRIBUTION WIDTH 18.9 % (11.5-14.5); WHITE BLOOD COUNT 3.5 10^3/uL (4.0-10.0)
[2016-12-29 07:51] LABS: ALBUMIN 2.3 GM/DL (3.2-5.2); ALBUMIN/GLOBULIN RATIO 0.61 (1.00-1.93); ALKALINE PHOSPHATASE 277 U/L (45-117); ALT/SGPT 53 U/L (12-78); ANION GAP 12 MEQ/L (8-16); AST/SGOT 139 U/L (15-37); BILIRUBIN,TOTAL 0.9 MG/DL (0.2-1.0); BLOOD UREA NITROGEN 9 MG/DL (7-18); CALCIUM LEVEL 8.2 MG/DL (8.5-10.1); CARBON DIOXIDE LEVEL 20 MEQ/L (21-32); CHLORIDE LEVEL 106 MEQ/L (98-107); CREATININE FOR GFR 0.51 MG/DL (0.55-1.02); GLOMERULAR FILTRATION RATE > 60.0 (>51); GLUCOSE, FASTING 76 MG/DL (70-105); POTASSIUM SERUM 3.9 MEQ/L (3.5-5.1); SODIUM LEVEL 138 MEQ/L (136-145); TOTAL PROTEIN 6.1 GM/DL (6.4-8.2)
--- NOTE | 2016-12-29 08:24 | ECGEPIP ---
Stationary ECG Study [facility] - ED Test Date: 2016-12-28 Pat Name: JENNY FALCON Department: Room: [place] [address] Gender: F Liquor Tester: franklin : 1965 Requested By: CARROL FISHER PA-C Order Number: [id number] Reading MD: Shari Jay Measurements Intervals [place] Rate: 101 P: 57 NM: 135 QRS: 35 QRSD: 82 T: 49 QT: 354 QTc: 459 Interpretive Statements SINUS TACHYCARDIA NONSPECIFIC T-WAVE ABNORMALITY ABNORMAL RHYTHM ECG INCREASED RATE 12/12/16 Electronically Signed On 12-29-2016 8:24:11 EDT by Shari Jay
[2016-12-29] MEDS: ASPIRIN 81 MG ENTERIC TAB PO SCH (08:26)
[2016-12-29] MEDS: SENOKOT S TAB PO SCH ×2 (08:27→20:05)
[2016-12-29] MEDS: clonazePAM 0.5 MG TAB PO PRN ×2 (08:33→21:39)
[2016-12-29 08:44] VITALS: BP 135/62
[2016-12-29] MEDS: ENOXAPARIN 40 MG/0.4 ML SYRINGE (J1650) SC SCH (09:00)
[2016-12-29 16:00] VITALS: BP 125/62
--- NOTE | 2016-12-29 16:23 | IPNPDOC ---
Text Note Date of Service The patient was seen on 12/29/16. NOTE Subjective: Patient states her nausea/vomiting/abdominal pain is improving. No chest pain/shortness of breath/palpitations. Objective: Vitals: (see below) General: No acute distress, laying comfortably in bed. HEENT: Moist mucous membranes. Neck: No JVD or lymphadenopathy Cardiac: RRR, No murmurs Pulm: Clear to auscultation b/l. No wheezing, rhonchi Abd: NT/ND + BS. Obese Ext: No edema or cyanosis Labs (see below) Images: CT abdomen and pelvis on 12/28/16 Findings: Chest: The visualized lung bases are clear. Abdomen: The kidneys are normal in size bilaterally. There is no evidence of hydronephrosis or nephrolithiasis. The liver is enlarged, measuring 29 cm in diameter. No focal hepatic masses are appreciated. The spleen, pancreas, gallbladder and adrenal glands are unremarkable. The aorta demonstrates normal caliber and contour. There is no abdominal lymphadenopathy or ascites. Pelvis: The bowel is unremarkable, with no obstructive or inflammatory changes. The appendix is normal. The urinary bladder is within normal limits. There is no pelvic lymphadenopathy or ascites. The other pelvic structures appear unremarkable. Bones: There are no suspicious osseous abnormalities seen. Impression: Unremarkable CT examination of the abdomen and pelvis. Assessment/Plan 1. Recurrent pancreatitis- -lipase 1000, with nausea/vomiting. Her symptoms are not improving. There is no clear cause of her recurrent pancreatitis. Her triglycerides were 200s on her recent admission. She is still on fenofibrate, which can predispose her to getting pancreatitis. We will hold this for now. CT abdomen and pelvis (see above). Patient states she is not drinking alcohol anymore. GI consulted. 2. Chronic back spasms and Soma 3. History of anxiety continue home meds 4. GERD continue PPI 5. History of chronic cholecystitis 6. History of dysphagia secondary to Austin's he's wearing 7. History rheumatoid arthritis 8. History of migraines 9. History of PAD status post PCI 10. Hyperlipidemia 11. Asthma DVT prophy: SCD/out of bed and ambulate. Patient refused Lovenox. VS,Fishbone, I+O VS, Fishbone, I+O Laboratory Tests 12/29/16 07:03 Red Blood Count 3.67 L, Mean Corpuscular Volume 91.6, Mean Corpuscular Hemoglobin 30.0, Mean Corpuscular Hemoglobin Concent 32.7, Red Cell Distribution Width 18.9 H, Calcium Level 8.2 L, Aspartate Amino Transf (AST/SGOT ) 139 H, Alanine Aminotransferase (ALT/SGPT) 53, Alkaline Phosphatase 277 H, Total Bilirubin 0.9, Total Protein 6.1 L, Albumin 2.3 L Vital Signs Date Time Temp Pulse Resp B/P (MAP) Pulse Ox O2 Delivery O2 Flow Rate FiO2 12/29/16 12:22 16 Room Air 12/29/16 08:44 97.7 95 135/62 (86) 96 I&O- Last 24 Hours up to 6 AM 12/30/16 06:00 Intake Total 775 ml Output Total 200 ml Balance 575 ml LOGAN BARR MD Dec 29, 2016 16:23
[2016-12-29] MEDS: LR 1,000 ML IV SCH (17:28)
[2016-12-29 20:00] VITALS: BP 127/60
[2016-12-29] MEDS: PANTOPRAZOLE 40MG INJ (PROTONIX) (C9113) IV SCH (20:04)
--- NOTE | 2016-12-29 21:08 | CR.PDOC ---
[facility] Consultation Consultation DATE OF CONSULTATION: Dec 29, 2016 at 12:04 Hospitalist/consult attending: Dr. Duenas Reason for consult: Acute pancreatitis. Primary physician/ hospitalist: Reason for consult: HPI: 51 year old female patient with RA ( on Imuran), migraines, HLD, HTN, Fibromyalgia, Anxiety disorder ( on clonazepam), was initially admitted to hospital few weeks ago for severe abdominal pain, nausea and vomiting diagnosed with acute pancreatitis ( CT evidence and Lipase elevated) and work up including MRCP and USG abdomen did not show gall stones and impression was likely medication induced. Patient was discharged but she returns for recurrent abdominal pain and noted with still elevated Lipase. GI is consulted in this admission for recurrent pancreatitis. Patient reports that she is taking lot of medications at home and not sure which she stopped but on review she resumed azathioprine ( using for RA). Patient denies using alcohol but is active smoker and is trying to quit smoking. Patient also reports for the last few months she is losing weight. Pertinent negative GI symptoms: Patient diarrhea, sick contacts, herbal medication use, hematemesis, melena or hematochezia. Patient reports regular bowel movements. OFF note: patient report difficulty in swallowing pills but no problem with solid foods and had h/o acid reflux for many years. Review of Systems: GI: as stated above CVS: No chest pain, No palpitations, No leg swelling. RS: No Shortness of breath, No Wheezing, no cough MAINTENANCE CLERK: No dizziness, No motor weakness, No sensory problems Hematology: No bruising, No gum bleeding, Musculoskeletal: No joint pain, ambulating well. Skin: No rash : No hematuria, No burning sensation of the urine ENT: No ear discharge/ pain, No dysphagia. Eyes: No photophobia. Home medications: reviewed. Medications associated with pancreatitis Azathioprine, Fibrates/ Antithrombotic agents ASA. Medical h/o: As above. Surgical h/o: None on abdomen. Social h/o: Alcohol None for last 12 years. , smoking Active , IVDA/ drugs Denies . Family h/o of GI cancers had h/o colon cancer in family . Prior Endoscopies: --- EGD None --- Colonoscopy None Prior GI evaluation: None. Exam: Vitals: reviewed General: Alert and oriented x 3 but very slow to react and appeared slightly drowsy., not in distress HEENT: NO pallor, no icterus. Normal oropharynx, NO cervical lymph nodes. Chest: symmetric with bilateral clear air entry, CVS: S1, S2 heard, normal, no murmurs . Abdomen: non-distended, no surgical scars, soft, Moderate epigastric tenderness without rigidity or guarding, no palpable masses, normal bowel sounds heard. Rectal exam: Patient refused. Extremities: no pedal edema, pulses palpable. MAINTENANCE CLERK: no focal motor or sensory deficits. Moves all extremities Skin: no rash. Labs: reviewed. Imaging: reviewed CT abdomen in this admission no evidence of pancreatitis. Impression: - Acute pancreatitis likely from Medications (azathioprine and fibrate). Vs r/ o biliary pathology - Elevated Alkaline phosphatase needs further evaluation. - Chronic acid reflux with abdominal pain and unable to tolerate Oral food intake R/o PUD vs esophagitis.. - Elevated risks for colon polyps and colon cancer. ( family h/o colon cancer) Recommendations: - Patient educated about the test results, possible differential diagnoses and All questions answered. - NPO for now. - IV ringers lactate drip titrated based on fluid status. - Advance diet when tolerated to clear liquids. - Stop Azathioprine and consult rheumatology electively for alternative therapy for RA. - If patient is unable to tolerate diet will plan for inpatient EGD on Sunday, Otherwise patient to follow up in outpatient clinic for elective EGD and Colonoscopy. - Patient educated about cessation of smoking. - If patient is being discharged please update me ( @ [phone]. Plan of care discussed with patient and primary team. Patient verbalized understanding and agreed for plan of care. Allergies Coded Allergies: Latex (Verified Allergy, Intermediate, SKIN BREAKS OUT, 10/02/13) Etodolac (Verified Adverse Reaction, Intermediate, INSOMNIA, 06/25/12) Ketorolac Tromethamine (Unverified Adverse Reaction, Unknown, DROWSINESS, 12/12/16) Home Medications Scheduled (Incruse Ellipta) 62.5 Mcg/Inh Inh, 1 PUFF INH DAILY, (Reported) Aspirin (Aspirin 81) 81 Mg Tab, 81 MG PO DAILY, (Reported) Fenofibrate (Fenofibrate) 54 Mg Tab, 54 MG PO QPM, (Reported) TAKE WITH APPLESAUCE Lansoprazole (Lansoprazole) 30 Mg Cap, 30 MG PO QPM, (Reported) TAKE WITH APPLESAUCE Scheduled PRN Carisoprodol (Carisoprodol) 350 Mg Tab, 350 MG PO TID PRN for SPASMS, (Reported) Clonazepam (Clonazepam) 1 Mg Tab, 1 MG PO TID PRN for ANXIETY, (Reported) Oxycodone Hcl (Oxycodone HCl) 15 Mg Tab, 15 MG PO QID PRN for PAIN, (Reported) Sumatriptan Succinate (Sumatriptan Succinate) 50 Mg Tab, 50 MG PO BID PRN for MIGRAINE, (Reported) EAGLE CURRIE MD Dec 29, 2016 21:08
[2016-12-29] MEDS: CARISOPRODOL 350 MG TAB PO PRN (21:42)
[2016-12-30] MEDS: LR 1,000 ML IV SCH ×3 (00:35→21:44)
[2016-12-30 04:00] VITALS: BP 134/63
[2016-12-30] MEDS: PERCOCET 5MG/325MG TAB PO PRN ×4 (06:31→21:45)
[2016-12-30 06:37] LABS: MEAN CORPUSCULAR HEMOGLOBIN 30.3 pg (27.0-33.0); MEAN CORPUSCULAR HGB CONC 33.1 g/dl (32.0-36.5); MEAN CORPUSCULAR VOLUME 91.5 fl (80.0-96.0); RED CELL DISTRIBUTION WIDTH 19.3 % (11.5-14.5); WHITE BLOOD COUNT 3.4 10^3/uL (4.0-10.0)
[2016-12-30 07:00] LABS: ALBUMIN 2.2 GM/DL (3.2-5.2); ALBUMIN/GLOBULIN RATIO 0.59 (1.00-1.93); ALKALINE PHOSPHATASE 265 U/L (45-117); ALT/SGPT 45 U/L (12-78); ANION GAP 13 MEQ/L (8-16); AST/SGOT 130 U/L (15-37); BILIRUBIN,TOTAL 0.9 MG/DL (0.2-1.0); BLOOD UREA NITROGEN 7 MG/DL (7-18); CALCIUM LEVEL 8.2 MG/DL (8.5-10.1); CARBON DIOXIDE LEVEL 19 MEQ/L (21-32); CHLORIDE LEVEL 106 MEQ/L (98-107); GLOMERULAR FILTRATION RATE > 60.0 (>51); GLUCOSE, FASTING 68 MG/DL (70-105); POTASSIUM SERUM 3.8 MEQ/L (3.5-5.1); SODIUM LEVEL 138 MEQ/L (136-145); TOTAL PROTEIN 5.9 GM/DL (6.4-8.2)
[2016-12-30 08:00] VITALS: BP 130/60
[2016-12-30] MEDS: ASPIRIN 81 MG ENTERIC TAB PO SCH (08:11)
[2016-12-30] MEDS: SENOKOT S TAB PO SCH ×2 (08:40→21:45)
[2016-12-30] MEDS: ENOXAPARIN 40 MG/0.4 ML SYRINGE (J1650) SC SCH (08:41)
--- NOTE | 2016-12-30 15:22 | IPNPDOC ---
Text Note Date of Service The patient was seen on 12/30/16. NOTE Subjective: Patient states her nausea/vomiting/abdominal pain have resolved and she will attempt a clear diet today. No chest pain/shortness of breath/ palpitations. Objective: Vitals: (see below) General: No acute distress, laying comfortably in bed. HEENT: Moist mucous membranes. Neck: No JVD or lymphadenopathy Cardiac: RRR, No murmurs Pulm: Clear to auscultation b/l. No wheezing, rhonchi Abd: NT/ND + BS. Obese Ext: No edema or cyanosis Labs (see below) Images: CT abdomen and pelvis on 12/28/16 Findings: Chest: The visualized lung bases are clear. Abdomen: The kidneys are normal in size bilaterally. There is no evidence of hydronephrosis or nephrolithiasis. The liver is enlarged, measuring 29 cm in diameter. No focal hepatic masses are appreciated. The spleen, pancreas, gallbladder and adrenal glands are unremarkable. The aorta demonstrates normal caliber and contour. There is no abdominal lymphadenopathy or ascites. Pelvis: The bowel is unremarkable, with no obstructive or inflammatory changes. The appendix is normal. The urinary bladder is within normal limits. There is no pelvic lymphadenopathy or ascites. The other pelvic structures appear unremarkable. Bones: There are no suspicious osseous abnormalities seen. Impression: Unremarkable CT examination of the abdomen and pelvis. Assessment/Plan 1. Recurrent pancreatitis- -lipase 1000, with nausea/vomiting on presentation. Her symptoms have resolved. Likely secondary to meds. Advised the patient to discontinue her fenofibrate and to follow-up with her primary care physician and peripheral equipment operator regarding repeat lipid panel in 6 months. Her triglycerides were 200s on her recent admission. She is taking a Fish oil product . CT abdomen and pelvis (see above). Patient states she is not drinking alcohol anymore. GI has been consulted. We will attempt to advance the patient's diet. 2. Chronic back spasms and Soma 3. History of anxiety continue home meds 4. GERD continue PPI 5. History of chronic cholecystitis 6. History of dysphagia secondary to Austin's he's wearing 7. History rheumatoid arthritis 8. History of migraines 9. History of PAD status post PCI 10. Hyperlipidemia 11. Asthma DVT prophy: SCD/out of bed and ambulate. Patient refused Lovenox. VS,Fishbone, I+O VS, Fishbone, I+O Laboratory Tests 12/30/16 06:06 Red Blood Count 3.66 L, Mean Corpuscular Volume 91.5, Mean Corpuscular Hemoglobin 30.3, Mean Corpuscular Hemoglobin Concent 33.1, Red Cell Distribution Width 19.3 H, Calcium Level 8.2 L, Aspartate Amino Transf (AST/SGOT ) 130 H, Alanine Aminotransferase (ALT/SGPT) 45, Alkaline Phosphatase 265 H, Total Bilirubin 0.9, Total Protein 5.9 L, Albumin 2.2 L Vital Signs Date Time Temp Pulse Resp B/P (MAP) Pulse Ox O2 Delivery O2 Flow Rate FiO2 12/30/16 11:38 18 96 Room Air 12/30/16 08:00 97.4 99 130/60 (83) I&O- Last 24 Hours up to 6 AM 12/31/16 06:00 Intake Total 120 ml Output Total 250 ml Balance -130 ml LOGAN BARR MD Dec 30, 2016 15:22
[2016-12-30 16:00] VITALS: BP 140/62
[2016-12-30 20:00] VITALS: BP 151/67
[2016-12-30] MEDS: PANTOPRAZOLE 40MG INJ (PROTONIX) (C9113) IV SCH (21:44)
[2016-12-30] MEDS: clonazePAM 0.5 MG TAB PO PRN (21:45)
[2016-12-30] MEDS: CARISOPRODOL 350 MG TAB PO PRN (21:46)
[2016-12-31] VITALS: BP 118/59
[2016-12-31 06:43] LABS: MEAN CORPUSCULAR HEMOGLOBIN 30.4 pg (27.0-33.0); MEAN CORPUSCULAR HGB CONC 33.5 g/dl (32.0-36.5); MEAN CORPUSCULAR VOLUME 90.5 fl (80.0-96.0); RED CELL DISTRIBUTION WIDTH 19.1 % (11.5-14.5); WHITE BLOOD COUNT 3.3 10^3/uL (4.0-10.0)
[2016-12-31 07:07] LABS: ALBUMIN 2.2 GM/DL (3.2-5.2); ALBUMIN/GLOBULIN RATIO 0.61 (1.00-1.93); ALKALINE PHOSPHATASE 299 U/L (45-117); ALT/SGPT 41 U/L (12-78); ANION GAP 12 MEQ/L (8-16); AST/SGOT 124 U/L (15-37); BILIRUBIN,TOTAL 0.8 MG/DL (0.2-1.0); BLOOD UREA NITROGEN 6 MG/DL (7-18); CALCIUM LEVEL 8.3 MG/DL (8.5-10.1); CARBON DIOXIDE LEVEL 19 MEQ/L (21-32); CHLORIDE LEVEL 105 MEQ/L (98-107); GLOMERULAR FILTRATION RATE > 60.0 (>51); GLUCOSE, FASTING 87 MG/DL (70-105); POTASSIUM SERUM 3.6 MEQ/L (3.5-5.1); SODIUM LEVEL 136 MEQ/L (136-145); TOTAL PROTEIN 5.8 GM/DL (6.4-8.2)
[2016-12-31] MEDS: LR 1,000 ML IV SCH ×2 (07:49→17:46)
[2016-12-31 08:00] VITALS: BP 121/56
[2016-12-31] MEDS: ENOXAPARIN 40 MG/0.4 ML SYRINGE (J1650) SC SCH (09:48)
[2016-12-31] MEDS: INCRUSE ELLIPTA (PATIENT'S OWN MED) INH SCH (09:49)
[2016-12-31] MEDS: SENOKOT S TAB PO SCH ×2 (09:49→20:04)
[2016-12-31] MEDS: ASPIRIN 81 MG ENTERIC TAB PO SCH (09:49)
[2016-12-31] MEDS: oxyCODONE 5MG TAB PO PRN ×2 (10:00→17:47)
[2016-12-31] MEDS: CARISOPRODOL 350 MG TAB PO PRN ×2 (10:03→17:46)
--- NOTE | 2016-12-31 10:41 | IPNPDOC ---
Text Note Date of Service The patient was seen on 12/31/16. NOTE Subjective: Pt with LUQ pain with broth, and is unable to advance her diet. No chest pain/shortness of breath/palpitations. Objective: Vitals: (see below) General: No acute distress, laying comfortably in bed. HEENT: Moist mucous membranes. Neck: No JVD or lymphadenopathy Cardiac: RRR, No murmurs Pulm: Clear to auscultation b/l. No wheezing, rhonchi Abd: NT/ND + BS. Obese Ext: No edema or cyanosis Labs (see below) Images: CT abdomen and pelvis on 12/28/16 Findings: Chest: The visualized lung bases are clear. Abdomen: The kidneys are normal in size bilaterally. There is no evidence of hydronephrosis or nephrolithiasis. The liver is enlarged, measuring 29 cm in diameter. No focal hepatic masses are appreciated. The spleen, pancreas, gallbladder and adrenal glands are unremarkable. The aorta demonstrates normal caliber and contour. There is no abdominal lymphadenopathy or ascites. Pelvis: The bowel is unremarkable, with no obstructive or inflammatory changes. The appendix is normal. The urinary bladder is within normal limits. There is no pelvic lymphadenopathy or ascites. The other pelvic structures appear unremarkable. Bones: There are no suspicious osseous abnormalities seen. Impression: Unremarkable CT examination of the abdomen and pelvis. Assessment/Plan 1. Recurrent pancreatitis- -lipase 1000, with nausea/vomiting on presentation. Her symptoms have resolved. Likely secondary to meds. Advised the patient to discontinue her fenofibrate and to follow-up with her primary care physician and aviation project manager regarding repeat lipid panel in 6 months. Her triglycerides were 200s on her recent admission. She is taking a Fish oil product . CT abdomen and pelvis (see above). Patient states she is not drinking alcohol anymore. GI has been consulted. Unable to advance diet today. Clear liquids for now. 2. Chronic back spasms and Soma 3. History of anxiety continue home meds 4. GERD continue PPI 5. History of chronic cholecystitis 6. History of dysphagia secondary to Austin's he's wearing 7. History rheumatoid arthritis 8. History of migraines 9. History of PAD status post PCI 10. Hyperlipidemia 11. Asthma DVT prophy: SCD/out of bed and ambulate. Patient refused Lovenox. VS,Fishbone, I+O VS, Fishbone, I+O Laboratory Tests 10/8/17 06:24 Red Blood Count 3.59 L, Mean Corpuscular Volume 90.5, Mean Corpuscular Hemoglobin 30.4, Mean Corpuscular Hemoglobin Concent 33.5, Red Cell Distribution Width 19.1 H, Calcium Level 8.3 L, Aspartate Amino Transf (AST/SGOT ) 124 H, Alanine Aminotransferase (ALT/SGPT) 41, Alkaline Phosphatase 299 H, Total Bilirubin 0.8, Total Protein 5.8 L, Albumin 2.2 L Vital Signs Date Time Temp Pulse Resp B/P (MAP) Pulse Ox O2 Delivery O2 Flow Rate FiO2 12/31/16 10:00 97.9 87 18 118/59 97 Room Air LOGAN BARR MD Dec 31, 2016 10:41
[2016-12-31 16:00] VITALS: BP 115/56
[2016-12-31] MEDS: clonazePAM 0.5 MG TAB PO PRN (17:46)
[2016-12-31] MEDS: PANTOPRAZOLE 40MG INJ (PROTONIX) (C9113) IV SCH (20:04)
[2017-01-01] VITALS (9 sets, daily range): BP systolic 114–149; BP diastolic 58–73
[2017-01-01] MEDS: LR 1,000 ML IV SCH ×2 (03:58→13:49)
[2017-01-01 06:36] LABS: MEAN CORPUSCULAR HEMOGLOBIN 30.5 pg (27.0-33.0); MEAN CORPUSCULAR HGB CONC 33.7 g/dl (32.0-36.5); MEAN CORPUSCULAR VOLUME 90.5 fl (80.0-96.0); RED CELL DISTRIBUTION WIDTH 19.5 % (11.5-14.5); WHITE BLOOD COUNT 3.8 10^3/uL (4.0-10.0)
[2017-01-01 07:08] LABS: ALBUMIN 2.1 GM/DL (3.2-5.2); ALBUMIN/GLOBULIN RATIO 0.58 (1.00-1.93); ALKALINE PHOSPHATASE 309 U/L (45-117); ALT/SGPT 37 U/L (12-78); ANION GAP 15 MEQ/L (8-16); AST/SGOT 112 U/L (15-37); BILIRUBIN,TOTAL 0.9 MG/DL (0.2-1.0); BLOOD UREA NITROGEN 5 MG/DL (7-18); CALCIUM LEVEL 8.2 MG/DL (8.5-10.1); CARBON DIOXIDE LEVEL 20 MEQ/L (21-32); CHLORIDE LEVEL 103 MEQ/L (98-107); CREATININE FOR GFR 0.46 MG/DL (0.55-1.02); GLOMERULAR FILTRATION RATE > 60.0 (>51); GLUCOSE, FASTING 77 MG/DL (70-105); POTASSIUM SERUM 3.8 MEQ/L (3.5-5.1); SODIUM LEVEL 138 MEQ/L (136-145); TOTAL PROTEIN 5.7 GM/DL (6.4-8.2)
[2017-01-01] MEDS: SENOKOT S TAB PO SCH ×2 (08:40→20:21)
[2017-01-01] MEDS: ASPIRIN 81 MG ENTERIC TAB PO SCH (08:40)
[2017-01-01] MEDS: ENOXAPARIN 40 MG/0.4 ML SYRINGE (J1650) SC SCH (08:42)
[2017-01-01] MEDS: INCRUSE ELLIPTA (PATIENT'S OWN MED) INH SCH (08:45)
[2017-01-01] MEDS: CARISOPRODOL 350 MG TAB PO PRN ×3 (08:59→20:28)
[2017-01-01] MEDS: clonazePAM 0.5 MG TAB PO PRN ×2 (08:59→20:29)
[2017-01-01] MEDS: oxyCODONE 5MG TAB PO PRN ×2 (09:00→20:29)
--- NOTE | 2017-01-01 10:02 | IPNPDOC ---
Date Seen The patient was seen on 01/01/17 at 9:00 AM. Progress Note Interval history: Patient reports her abdominal pain is improving but could not tolerate food well and was on clear liquid diet till today. Patient denies nausea or vomiting. No fever, Exam: Vitals: reviewed General: Alert and oriented x 3, not in distress HEENT: NO pallor, no icterus. Normal oropharynx, NO cervical lymph nodes. Chest: symmetric with bilateral clear air entry, CVS: S1, S2 heard, normal, no murmurs . Abdomen: non-distended, no surgical scars, soft, Minimal epigastric tenderness without rigidity or guarding, no palpable masses, normal bowel sounds heard. Labs: reviewed. Imaging: reviewed CT abdomen in this admission no evidence of pancreatitis. Prior MRI without contrast - normal. Impression: - Acute pancreatitis likely from Medications (azathioprine and fibrate). Vs r/ o biliary pathology - Elevated Alkaline phosphatase needs further evaluation. - Chronic acid reflux with abdominal pain and unable to tolerate Oral food intake R/o PUD vs esophagitis.. - Elevated risks for colon polyps and colon cancer. ( family h/o colon cancer) Recommendations: - Patient educated about the test results, possible differential diagnoses and All questions answered. - NPO for now. - IV ringers lactate drip titrated based on fluid status.. - Azathioprine and fenofibrate on Hold. Patient to follow up with rheumatology electively for alternative therapy for RA. - As patient is unable to tolerate diet will plan for inpatient EGD today. The procedure, indications, risks ( bleeding, perforation, infection, hypotension, respiratory depression, allergy, need for prolonged endotracheal intubation, surgery, cardiac arrest, even ), benefits, limitations, and all other alternatives (including no intervention) were explained to the patient who understood and agreed for the procedure. Informed consent obtained - Patient to follow up in outpatient clinic for elective Colonoscopy. - Patient educated about cessation of smoking. - If patient is being discharged please call GI clinic to make appointment @ [phone]. Plan of care discussed with patient and primary team. Patient verbalized understanding and agreed for plan of care. EAGLE CURRIE MD Jan 01, 2017 10:02
--- NOTE | 2017-01-01 14:46 | ROOR ---
Patient Name: Erin Colon Procedure Date: 01/01/2017 12:07 PM Date of : 1965 Age: 51 Room: Main OR Gender: Female Note Status: Finalized Procedure: Upper GI endoscopy Indications: Dysphagia Providers: Shiv Hansen MD Referring MD: Jairo Gonzalez MD Requesting Provider: Medicines: Monitored Anesthesia Care Complications: No immediate complications. Procedure: Pre-Anesthesia Assessment: - Prior to the procedure, a History and Physical was performed, and patient medications and allergies were reviewed. The patient is competent. The risks and benefits of the procedure and the sedation options and risks were discussed with the patient. All questions were answered and informed consent was obtained. Patient identification and proposed procedure were verified by the physician, the nurse and the ward maid in the procedure room. Mental Status Examination: alert and oriented. Airway Examination: normal oropharyngeal airway and neck mobility. Respiratory Examination: clear to auscultation. CV Examination: normal. Prophylactic Antibiotics: The patient does not require prophylactic antibiotics. Prior Anticoagulants: The patient has taken no previous anticoagulant or antiplatelet agents. ASA Grade Assessment: III - A patient with severe systemic disease. After reviewing the risks and benefits, the patient was deemed in satisfactory condition to undergo the procedure. The anesthesia plan was to use monitored anesthesia care (MAC). Immediately prior to administration of medications, the patient was re-assessed for adequacy to receive sedatives. The heart rate, respiratory rate, oxygen saturations, blood pressure, adequacy of pulmonary ventilation, and response to care were monitored throughout the procedure. The physical status of the patient was re-assessed after the procedure. The Endoscope was introduced through the mouth, and advanced to the second part of duodenum. The upper GI endoscopy was accomplished without difficulty. The patient tolerated the procedure well. Findings: No endoscopic abnormality was evident in the esophagus to explain the patient's complaint of dysphagia. Biopsies were obtained from the proximal and distal esophagus with cold forceps for histology of suspected eosinophilic esophagitis. Verification of patient identification for the specimen was done by the physician, nurse and field installation technician using the patient's name, date and medical record number. Estimated blood loss was minimal. Diffuse moderate inflammation characterized by erythema and granularity was found in the gastric antrum. Biopsies were taken with a cold forceps for histology. The duodenal bulb and second portion of the duodenum were normal. Impression: - No endoscopic esophageal abnormality to explain patient's dysphagia. Biopsied. - Gastritis. Biopsied. - Normal duodenal bulb and second portion of the duodenum. Recommendation: - [facility] - Patient has a contact number available for emergencies. The signs and symptoms of potential delayed complications were discussed with the patient. Return to normal activities tomorrow. Written discharge instructions were provided to the patient. - Advance diet as tolerated. - Continue present medications. - Follow an antireflux regimen. - Use erythromycin 250 mg PO q 6 hr for 5 days. - Await pathology results. - Return to GI clinic at appointment to be scheduled. Please call GI clinic at [phone] for appointment. - Return to primary care physician. Shiv Hansen MD Shiv Hansen MD 01/01/2017 2:46:02 PM This report has been signed electronically. Number of Addenda: 0 Note Initiated On: 01/01/2017 12:07 PM Estimated Blood Loss: Estimated blood loss was minimal.
--- NOTE | 2017-01-01 14:48 | IPNPDOC ---
Text Note Date of Service The patient was seen on 01/01/17. NOTE Subjective: Unable to advance diet. Anxious about EGD today. No chest pain/ shortness of breath/palpitations. Objective: Vitals: (see below) General: No acute distress, laying comfortably in bed. HEENT: Moist mucous membranes. Neck: No JVD or lymphadenopathy Cardiac: RRR, No murmurs Pulm: Clear to auscultation b/l. No wheezing, rhonchi Abd: NT/ND + BS. Obese Ext: No edema or cyanosis Labs (see below) Images: CT abdomen and pelvis on 12/28/16 Findings: Chest: The visualized lung bases are clear. Abdomen: The kidneys are normal in size bilaterally. There is no evidence of hydronephrosis or nephrolithiasis. The liver is enlarged, measuring 29 cm in diameter. No focal hepatic masses are appreciated. The spleen, pancreas, gallbladder and adrenal glands are unremarkable. The aorta demonstrates normal caliber and contour. There is no abdominal lymphadenopathy or ascites. Pelvis: The bowel is unremarkable, with no obstructive or inflammatory changes. The appendix is normal. The urinary bladder is within normal limits. There is no pelvic lymphadenopathy or ascites. The other pelvic structures appear unremarkable. Bones: There are no suspicious osseous abnormalities seen. Impression: Unremarkable CT examination of the abdomen and pelvis. Assessment/Plan 1. Recurrent pancreatitis- -lipase 1000, with nausea/vomiting on presentation. Her symptoms have resolved. Likely secondary to meds. Advised the patient to discontinue her fenofibrate and to follow-up with her primary care physician and senior manager creative services regarding repeat lipid panel in 6 months. Her triglycerides were 200s on her recent admission. She is taking a Fish oil product . CT abdomen and pelvis (see above). Patient states she is not drinking alcohol anymore. GI has been consulted. Unable to advance diet today. NPO. EGD today. 2. Chronic back spasms and Soma 3. History of anxiety continue home meds 4. GERD continue PPI 5. History of chronic cholecystitis 6. History of dysphagia secondary to [place]'s he's wearing 7. History rheumatoid arthritis 8. History of migraines 9. History of PAD status post PCI 10. Hyperlipidemia 11. Asthma DVT prophy: SCD/out of bed and ambulate. Patient refused Lovenox. VS,Fishbone, I+O VS, Fishbone, I+O Laboratory Tests 01/01/17 06:18 Red Blood Count 3.57 L, Mean Corpuscular Volume 90.5, Mean Corpuscular Hemoglobin 30.5, Mean Corpuscular Hemoglobin Concent 33.7, Red Cell Distribution Width 19.5 H, Calcium Level 8.2 L, Aspartate Amino Transf (AST/SGOT ) 112 H, Alanine Aminotransferase (ALT/SGPT) 37, Alkaline Phosphatase 309 H, Total Bilirubin 0.9, Total Protein 5.7 L, Albumin 2.1 L Vital Signs Date Time Temp Pulse Resp B/P (MAP) Pulse Ox O2 Delivery O2 Flow Rate FiO2 01/01/17 09:30 16 01/01/17 09:00 Room Air 01/01/17 08:00 98.1 101 149/73 (98) 99 I&O- Last 24 Hours up to 6 AM 01/02/17 06:00 Intake Total 735 ml Balance 735 ml LOGAN BARR MD Jan 01, 2017 14:48
[2017-01-01] MEDS ORDERED: PROPOFOL 200 MG/20 ML VIAL As Ordered ONE ×2 (14:53→14:54)
[2017-01-01] MEDS ORDERED: LIDOCAINE 2% INJ 100 MG/5 ML SDV (FOR ANES.) As Ordered ONE (14:54)
[2017-01-01] MEDS ORDERED: ONDANSETRON 4MG/2ML VIAL (J2405) IV PRN (15:30)
[2017-01-01] MEDS ORDERED: LR 1,000 ML IV SCH (15:30)
[2017-01-01] MEDS ORDERED: fentaNYL 100 MCG/2 ML INJECTION (J3010) IV PRN (15:30)
[2017-01-01] MEDS: NS IV SCH (17:32)
[2017-01-01] MEDS: ERYTHROMYCIN LACTOBIONATE IV SCH (17:32)
[2017-01-01] MEDS: PANTOPRAZOLE 40MG INJ (PROTONIX) (C9113) IV SCH (20:21)
[2017-01-02] VITALS: BP 132/65
[2017-01-02] MEDS: LR 1,000 ML IV SCH (01:43)
[2017-01-02 04:00] VITALS: BP 151/67
[2017-01-02 07:52] LABS: MEAN CORPUSCULAR HEMOGLOBIN 30.3 pg (27.0-33.0); MEAN CORPUSCULAR HGB CONC 33.2 g/dl (32.0-36.5); MEAN CORPUSCULAR VOLUME 91.1 fl (80.0-96.0); PLATELET COUNT, AUTOMATED 102 10^3/uL (150-450); RED CELL DISTRIBUTION WIDTH 19.9 % (11.5-14.5); WHITE BLOOD COUNT 3.4 10^3/uL (4.0-10.0)
[2017-01-02 08:00] VITALS: BP 125/71
[2017-01-02 08:37] LABS: ALBUMIN 2.2 GM/DL (3.2-5.2); ALBUMIN/GLOBULIN RATIO 0.67 (1.00-1.93); ALKALINE PHOSPHATASE 330 U/L (45-117); ALT/SGPT 38 U/L (12-78); ANION GAP 15 MEQ/L (8-16); AST/SGOT 119 U/L (15-37); BLOOD UREA NITROGEN 5 MG/DL (7-18); CALCIUM LEVEL 8.4 MG/DL (8.5-10.1); CARBON DIOXIDE LEVEL 20 MEQ/L (21-32); CHLORIDE LEVEL 102 MEQ/L (98-107); CREATININE FOR GFR 0.46 MG/DL (0.55-1.02); GLOMERULAR FILTRATION RATE > 60.0 (>51); GLUCOSE, FASTING 95 MG/DL (70-105); POTASSIUM SERUM 3.8 MEQ/L (3.5-5.1); SODIUM LEVEL 137 MEQ/L (136-145); TOTAL PROTEIN 5.5 GM/DL (6.4-8.2)
[2017-01-02] MEDS: ERYTHROMYCIN LACTOBIONATE IV SCH (08:55)
[2017-01-02] MEDS: NS IV SCH (08:55)
[2017-01-02] MEDS: INCRUSE ELLIPTA (PATIENT'S OWN MED) INH SCH (08:56)
[2017-01-02] MEDS ORDERED: ERYT25CAEC PO (08:56)
[2017-01-02] MEDS: clonazePAM 0.5 MG TAB PO PRN (08:57)
[2017-01-02] MEDS: CARISOPRODOL 350 MG TAB PO PRN (08:58)
[2017-01-02] MEDS: oxyCODONE 5MG TAB PO PRN (08:58)
[2017-01-02] MEDS: SENOKOT S TAB PO SCH (08:59)
[2017-01-02] MEDS: ASPIRIN 81 MG ENTERIC TAB PO SCH (08:59)
[2017-01-02] MEDS: ENOXAPARIN 40 MG/0.4 ML SYRINGE (J1650) SC SCH (08:59)
--- NOTE | 2017-01-02 11:41 | DSES ---
DATE OF ADMISSION: 12/28/2016 DATE OF DISCHARGE: 01/02/2017 SPECIALISTS INVOLVED IN CARE: Include Dr. Hanesn. PROCEDURES PERFORMED DURING STAY: Included esophagogastroduodenoscopy (EGD). No complications during the stay. DISCHARGE DIAGNOSES: 1. Recurrent pancreatitis, though to be drug related, possibly related to underlying viral illness. 2. Chronic back pain. 3. Anxiety. 4. Gastroesophageal reflux disease (GERD). 5. History of chronic cholecystitis. 6. History of dysphagia. 7. Rheumatoid arthritis. 8. Migraines. 9. Peripheral arterial disease 10. Hyperlipidemia. 11. Asthma. FOLLOWING IS A SUMMARY OF THE HOSPITALIZATION: This is a patient admitted with recurrent pancreatitis, had not yet followed up with a feather duster winder in [place] from her last admission. Was found to have elevated lipase, nausea, vomiting, and tachycardia. Was admitted to the hospitalist service. Underwent conservative measures. CT of the abdomen and pelvis was relatively unremarkable. Seen in consultation by Dr. Hansen, who suggested stopping his thioprine and fibrates. The patient underwent EGD, which showed gastritis. Biopsies were performed. Diet was advanced. She did well. On the day of discharge, she is feeling well. She has no complaints of pain, chest pain, shortness of breath. Temperature is 98.2, pulse 97, respiratory rate 14, blood pressure 125/71, 99% on room air. Breathing is symmetrical and rested. Heart is in a regular rate and rhythm. Abdomen is soft, doughy, nontender. White cell count is 3.4, hemoglobin 10.2, and platelets of 102. BUN 5, creatinine 0.46. DISCHARGE INSTRUCTIONS: Include the followin. Followup with Dr. Hansen 01/17/2017 at 10 a.m. 2[address] Follow[address] Venegas. 3. Activity and diet as tolerated. 4. Was given a prescription to have a complete blood count (CBC) done 01/04/[address] Venegas to followup pancytopenia. DISCHARGE MEDICATIONS: Include: - erythromycin 250 mg by mouth four times daily for 4 days - soma 350 mg by mouth three times a day as needed for spasm - clonazepam 1 mg three times a day as needed for anxiety - Incruse Ellipta one puff inhaled daily - Prevacid 30 mg by mouth every evening taken with applesauce - oxycodone 50 mg four times daily as needed for pain - sumatriptan as needed for migraine Discontinue aspirin. Discontinue fenofibrate. Will need to reconsider restarting aspirin as an outpatient and following up with Dr. Venegas. Edited: fabián 01/03/2017 [id number]
== END 2017-01-02 12:48 | disposition home or self-care (01) | DRG 282 ==
LOC: M ED 11:04 → M ED INP 19:08 → M PED 22:36
PROVIDERS: ADMIT Internal Medicine; ATTEND Internal Medicine
PROC: 0DB58ZX Excision of Esophagus, Via Natural or Artificial Opening Endoscopic, Diagnostic (ICD-10-PCS; principal; 2017-01-01 09:05)
DX: K86.1 Other chronic pancreatitis (principal); K22.2 Esophageal obstruction; I10 Essential (primary) hypertension; R13.10 Dysphagia, unspecified; K21.9 Gastro-esophageal reflux disease without esophagitis; F41.9 Anxiety disorder, unspecified; J45.909 Unspecified asthma, uncomplicated; E78.5 Hyperlipidemia, unspecified; M54.5 Low back pain; I73.9 Peripheral vascular disease, unspecified; M06.9 Rheumatoid arthritis, unspecified; G43.909 Migraine, unspecified, not intractable, without status migrainosus; K29.70 Gastritis, unspecified, without bleeding; Z79.899 Other long term (current) drug therapy; M79.7 Fibromyalgia; F17.200 Nicotine dependence, unspecified, uncomplicated; M62.830 Muscle spasm of back; Z91.040 Latex allergy status; Z88.8 Allergy status to other drugs, medicaments and biological substances